=== PATIENT | male | born 1975 | race African-American/Black ===

== ENCOUNTER 2017-11-30 04:05 | Emergency (ER) | payer OTHER ==
[~2017-11-30] VITALS: Ht 185.4 cm; Wt 83.9 kg
[2017-11-30 04:11] VITALS: BP 145/77
--- NOTE | 2017-11-30 04:41 | NUR ---
Patient does not wish to proceed with medical care recommended by Dr. STERLING ). Patient given information related to possible complications, up to and including , which could occur as a result of leaving the hospital at this time. Patient verbalizes understanding of risks involved due to leaving against medical advice. Patient has signed AMA form. MD MADE AWARE.
== END 2017-11-30 04:44 | disposition left against medical advice (07) ==
LOC: ER 04:06
DX: S00.81XA Abrasion of other part of head, initial encounter (principal); S40.211A Abrasion of right shoulder, initial encounter; S50.811A Abrasion of right forearm, initial encounter; Z53.20 Procedure and treatment not carried out because of patient's decision for unspecified reasons; Z88.0 Allergy status to penicillin; V04.99XA Pedestrian with other conveyance injured in collision with heavy transport vehicle or bus, unspecified whether traffic or nontraffic accident, initial encounter; Y93.89 Activity, other specified; Y92.89 Other specified places as the place of occurrence of the external cause; Y99.8 Other external cause status
CPT/HCPCS: 99281; A4606; A6402; Z7610; Z7502

== ENCOUNTER 2017-11-30 22:51 | Emergency (ER) | payer OTHER ==
[~2017-11-30] VITALS: Ht 185.4 cm; Wt 83.9 kg
[2017-11-30 23:11] VITALS: BP 116/68
--- NOTE | 2017-11-30 23:30 | NUR ---
PT TO CT.
--- NOTE | 2017-11-30 23:35 | NUR ---
PT RETURNED FROM CT.
== END 2017-12-01 00:21 | disposition home or self-care (01) ==
LOC: ER 22:52
DX: S00.12XA Contusion of left eyelid and periocular area, initial encounter (principal); Z88.0 Allergy status to penicillin; X58.XXXA Exposure to other specified factors, initial encounter; Y93.89 Activity, other specified; Y92.89 Other specified places as the place of occurrence of the external cause; Y99.8 Other external cause status
CPT/HCPCS: 70486-TC; A4606; Z7610